=== PATIENT | male | born 1955 | race Caucasian/White ===

== ENCOUNTER 2016-06-16 14:51 | Emergency (ER) | payer MEDICARE ==
[2013-11-06 09:51] VITALS: BMI 18.1
[~2016-06-16 14:51] MED LIST: ACETAMINOPHEN500 M1 PO; ADVAIR HFA 45/212 GM INH; ADVAIR HFA [SP]12 GM INH; BABY ASPIRIN81 MG PO; BAYER CHEWABLE81 MG PO; BENADRYL25 MG PO; COUMADIN5 MG PO; CYCLOBENZAPRINE10 MG PO; DEPAKOTE500 MG PO; DESERYL100 MG PO; DILAUDID 012 MG/30 M IV; DULCOLAX10 MG/SUPP RC; HYDROCODONE-APA1 TAB PO; HYDROCORTISONE30 G8 TP; IMDUR30 MG PO; MIRALAX17 GM PO; NAFCILLIN SO2 G/VIAL IV; NAPROSYN500 MG PO; NARCAN INJ0.4 MG/ML IV; NEURONTIN 300300 MG PO; NEURONTIN600 MG; NICODERM C1 PATCH .3 TD; NORCO 10/325 TA1 TA1 PO; NORCO 5/325 TAB1 TA1 PO; PAXIL30 MG PO; PERSANTINE50 MG PO; PLAVIX75 MG PO; PROAIR HFA8.5 GM INH; PROTONIX40 MG PO; RISPERDAL1 MG PO; SENOKOT-S TABLE1 TAB PO; SODIUM CL 0.91000 ML IV; SYMBICORT 16010.2 GM INH; TUMS500 MG PO; ZANAFLEX4 MG; ZANAFLEX4 MG PO
[2016-06-16 15:22] LABS: EOSINOPHILS 2.2 % (0-7); HEMATOCRIT 46.5 % (42.0-54.0); HEMOGLOBIN 15.8 g/dL (13.5-17.5); LYMPHOCYTES 49.2 % (15-50); MCV 91.2 fL (80.0-100.0); MEAN PLATELET VOLUME 9.3 fL (7.4-10.4); MONOCYTES 6.6 % (2-11); PLATELET COUNT 365 10x3/uL (130-400); RDW 13.7 % (11.5-14.5)
[2016-06-16 15:36] LABS: ALBUMIN 3.4 g/dL (3.4-5.0); ALKALINE PHOSPHATASE 79 U/L (46-116); ALT (SGPT) 72 U/L (10-68); BILIRUBIN - TOTAL 0.15 mg/dL (0.2-1.3); CALC OSMOLALITY 275 mosm/kg (275-300); CALCIUM 8.6 mg/dL (8.5-10.1); CARBON DIOXIDE 24.6 mmol/L (21.0-32.0); CHLORIDE - SERUM 103 mmol/L (98-107); CREATININE - SERUM 0.9 mg/dL (0.6-1.3); GLUCOSE 76 mg/dL (74-106); POTASSIUM - SERUM 3.6 mmol/L (3.5-5.1); PROTEIN - SERUM 7.9 g/dL (6.4-8.2); SODIUM 140 mmol/L (136-145); UREA NITROGEN 7 mg/dL (7-18); eGFR NON AFRICAN AMERICAN > 90 mL/min (90-120)
[2016-06-16 18:21] LABS: APPEARANCE CLEAR (CLEAR); BILIRUBIN NEGATIVE (NEGATIVE); COLOR YELLOW (YELLOW); GLUCOSE NEGATIVE (NEGATIVE); KETONE NEGATIVE (NEGATIVE); LEUKOCYTE ESTERASE NEGATIVE (NEGATIVE); NITRITE NEGATIVE (NEGATIVE); PROTEIN NEGATIVE (NEGATIVE); SPECIFIC GRAVITY 1.005 (1.005-1.020); UDS - AMPHET NEGATIVE QUAL (NEGATIVE); UDS - BARB NEGATIVE QUAL (NEGATIVE); UDS - BENZO POSITIVE QUAL (NEGATIVE); UDS - COCAINE POSITIVE QUAL (NEGATIVE); UDS - METH NEGATIVE QUAL (NEGATIVE); UDS - OPIATE NEGATIVE QUAL (NEGATIVE); UDS - PCP NEGATIVE QUAL (NEGATIVE); UDS - THC POSITIVE QUAL (NEGATIVE); UROBILINOGEN NORMAL (NORMAL)
== END 2016-06-16 19:50 | disposition home or self-care (01) ==
LOC: D.ER 14:51
PROVIDERS: Emergency Medicine
DX: F10.129 Alcohol abuse with intoxication, unspecified (principal); F31.89 Other bipolar disorder; I25.10 Atherosclerotic heart disease of native coronary artery without angina pectoris; E78.5 Hyperlipidemia, unspecified; E83.42 Hypomagnesemia

== ENCOUNTER 2016-09-08 16:39 | Observation (INO) | payer MEDICARE ==
[~2016-09-08] VITALS: Ht 182.9 cm; Wt 59.1 kg
--- NOTE | ~2016-09-08 | HEMODYNAMI ---
PATIENT:SAILAJA ASHBY MEDICAL RECORD: [id number] : 57 LOCATION: D.2218 ADMISSION DATE: 09/08/16 Generatedon:09/11/201610:18 Patient name: SAILAJA ASHBY Patient #: [id number] SSN: D OB: 1955 Date of study: 09/11/2016 Page: Of Hemodynamic Procedure Report Patient Data Patient Demographics Procedure consent was obtained First Name: SAILAJA Gender: Male Last Name: SYMONE : 1955 [facility] Initial: DARYL Age: 60 year(s) Patient #: [id number] Race: Unknown Additional ID: [id number] Contact details Address: [address] [place] [address] State: [place] City: [facility] Zip code: [address] Past Medical History Allergies: No known allergies Admission Admission Data Admission Date: 09/08/2016 Admission Time: 19:47 Room #: D.2218 Height (in.): 72 BSA: 1.78 (m2) Height (cm.): 182.88 BMI: 17.67 (kg/m2) Weight (lbs.): 130.27 Weight (kg.): 59.09 Procedure Procedure Types Cath Procedure Diagnostic Procedure [facility] w/Coronaries Miscellaneous Procedures Moderate Sedation up to 15 minutes Procedure Description Procedure Date Procedure Date: 09/11/2016 Procedure Start Time: 10:01 Procedure End Time: 10:17 Procedure Staff Name Function Luis Cavanaugh MD Performing Physician Riana Marie RT Scrub Kayli Ventura RN Nurse Arpita Sparks RT Monitor Procedure Data Cath Procedure Fluoroscopy Diagnostic fluoroscopy Total fluoroscopy Time: 2.9 time: 2.9 min min Diagnostic fluoroscopy Total fluoroscopy dose: 283 dose: 283 mGy mGy Contrast Material Contrast Material Type Amount (ml) Isovue 300 68 Entry Location Entry Primary Successful Side Size Upsize Upsize Entry Closure [place]ir[place] ccessful Closure Location (Fr) 1 (Fr) 2 (Fr) Remarks Device Remarks Radial Right 6 Fr Mechanical artery Short Compression Estimated blood loss: 10 ml Diagnostic catheters Device Type Used For End Catheter Placement Diagnostic Terumo 5Fr Procedure Melber 110cm catheter Diagnostic Infinity 5Fr AR MOD Catheter Procedure Complications No complications Procedure Medications Medication Administration Route Dosage Oxygen NC 2 l/min Heparin Flush Bag added to field 2 bags (1000units/500ml NS) Lidocaine 2% added to field 20 Radial Cocktail added to field 1 syringe (Verapomil 2mg/Nitro 400mcg/Heparin 1500units) Versed I.V. 1 mg Fentanyl I.V. 50 mcg Versed I.V. 1 mg Fentanyl I.V. 50 mcg Fentanyl I.V. 50 mcg Radial Cocktail I.A. 1 syringe (Verapomil 2mg/Nitro 400mcg/Heparin 1500units) Hemodynamics Rest BSA: 1.78 (m2) O2 Consumption: Estimated: 214.95 (ml/min) O2 Consumption indexed : Estimated:120.76 (ml/min/m) Heart Rate: 78 (bpm) Pressure Samples Time Site Value (mmHg) Purpose Heart Use Rate(bpm) 10:05 LV 113/-19,3 Snapshot 80 Snapshots Pre Cath Intra NCS Post Cath Vital Signs Time Heart Resp SPO2 etCO2 TA5dplc NIBP Rhythm Pain Sedation Rate (ipm) (%) (mmHg) (mmHg) (mmHg) Status Level (bpm) 9:44:53 89 15 97 0 0 141/84(94) NSR 0 (11) 10(A) , No pain 9:49:07 70 16 97 0 0 115/74(95) NSR 0 (11) 10(A) , No pain 9:53:13 74 16 96 0 0 111/70(97) NSR 0 (11) 10(A) , No pain 9:57:19 81 16 96 0 0 101/63(78) NSR 0 (11) 10(A) , No pain 10:01:19 83 16 95 0 0 101/72(85) NSR 0 (11) 9(A) , No pain 10:05:18 84 18 95 0 0 108/71(86) NSR 0 (11) 9(A) , No pain 10:09:24 83 19 96 0 0 98/61(77) NSR 0 (11) 9(A) , No pain 10:13:24 83 18 95 0 0 104/67(85) NSR 0 (11) 9(A) , No pain 10:17:25 79 16 97 0 0 110/68(86) NSR 0 (11) 9(A) , No pain Medications Time Medication Route Dose Verified Delivered Reason Notes Effectiveness by by 9:44:09 Oxygen NC 2 l/min Luis Valderramaecca Per [facility] Gm callaway MD 9:44:18 Heparin Flush added 2 bags Luis Smith used for Bag to Bonanza Bonanza procedure (1000units/500ml field MD VIEIRA NS) 9:44:25 Lidocaine 2% added 20ml Luis Luis used for to vial Afshan Bonanza procedure field MD VIEIRA 9:47:00 Radial Cocktail added 1 Luis Luis used for (Verapomil to syringe Bonanza Bonanza procedure 2mg/Nitro field MD VIEIRA 400mcg/Heparin 1500units) 9:55:40 Versed I.V. 1 mg Luis Kayli for sedation [facility]. Gm Ventura RN, MD 9:55:49 Fentanyl I.V. 50 mcg Luis Kayli for sedation [facility]. Gm Ventura RN, MD 9:58:48 Versed I.V. 1 mg Luis Kayli for sedation [facility]. Gm Ventura RN, MD 9:58:51 Fentanyl I.V. 50 mcg Luis Valderramaecca for sedation [facility]. Gm Ventura RN, MD 10:00:48 Fentanyl I.V. 50 mcg Luis Kayli for sedation St. Gm Ventura RN, MD 10:05:39 Radial Cocktail I.A. 1 Luis Smith for (Verapomil syringe Afshan Afshan vasodilation 2mg/Nitro MD VIEIRA 400mcg/Heparin 1500units) Procedure Log Time Note 9:31:51 Patient Height : 72 cm 9:32:02 Patient Weight : 130.27 kg 9:33:19 Procedure type changed to Cath procedure, Diagnostic procedure, LHC, LHC w/Coronaries, Miscellaneous Procedures, Moderate Sedation up to 15 minutes 9:34:19 Diagnostic Cath status Elective 9:34:22 Kayli Ventura RN sent for patient. Start room use. 9:34:26 Time tracking: Regular hours 9:34:31 Plan of Care:Hemodynamics will remain stable., Cardiac rhythm will remain stable., Comfort level will be maintained., Respiratory function will remain adequate., Patient/ family verbilizes understanding of procedure., Procedure tolerated without complication., Recovers from procedure without complications.. 9:34:41 Patient received from Med II to CCL 1 Alert and oriented. Tansferred to table in Supine position. 9:43:50 Vital chart was started 9:44:09 Oxygen 2 l/min NC was administered by Kayli Ventura RN; Per physician; 9:44:18 Heparin Flush Bag (1000units/500ml NS) 2 bags added to field was administered by Luis Cavanaugh MD; used for procedure; 9:44:25 Lidocaine 2% 20ml vial added to field was administered by Luis Cavanaugh MD; used for procedure; 9:47:00 Radial Cocktail (Verapomil 2mg/Nitro 400mcg/Heparin 1500units) 1 syringe added to field was administered by Luis Cavanaugh MD; used for procedure; 9:51:00 Warm blankets applied, and pierre hugger turned on for patient comfort. 9:51:01 Correct patient and procedure confirmed by team. 9:51:03 Signed procedure consent form obtained from patient. 9:51:05 ECG and BP/O2 sat monitors applied to patient. 9:51:06 Baseline sample Acquired. 9:51:10 Rhythm: sinus rhythm 9:51:12 Full Disclosure recording started 9:51:22 H&P Date Dictated: 09/09/2016 Within 30 days and on chart.. 9:51:25 Pre-procedure instructions explained to patient. 9:51:29 Patient NPO since Midnight. 9:51:39 Patient allergic to No known allergies 9:51:43 Is the patient allergic to Iodine/contrast media? No. 9:51:48 Is patient on blood thinner?Yes 9:51:52 ACC The patient was administered the following blood thiners within the last 24 hours: ACCPlavix 9:51:56 Patient diabetic? No. 9:52:01 Snore? Yes 9:52:03 Sleep apnea? No 9:52:13 Patient pain scale 0/10 ?. 9:52:21 IV patent on arrival in left forearm with 0.9% NaCl at KVO. 9:52:29 Lab results completed and on chart. 9:52:35 Right Radial & Right Groin area was prepped with chlora-prep and draped in sterile fashion 9:52:40 Alarms reviewed by R. N. 9:52:42 Sharps counted by scrub and verified by R.N. 9:54:51 Physician arrived 9:54:52 --------ALL STOP TIME OUT------ 9:54:53 Final Timeout: patient, procedure, and site verified with staff and physician. All members of the team are in agreement. 9:54:56 Right Radial & Right Groin site verified by team. 9:55:01 Sedation plan: IV Moderate Sedation Versed, Fentanyl 9:55:07 Physical assessment completed. ASA score P 2 - A patient with mild systemic disease as per Luis Cavanaugh MD. 9:55:17 Use device set Radial Dx 9:55:18 Acist Syringe opened to sterile field. 9:55:18 Medline Cath Pack opened to sterile field. 9:55:19 Bag Decanter opened to sterile field. 9:55:19 Terumo 6Fr Slender Glidesheath opened to sterile field. 9:55:20 St Shantanu 260cm J .035 wire opened to sterile field. 9:55:20 Acist Hand Control opened to sterile field. 9:55:21 Acist Manifold opened to sterile field. 9:55:40 Versed 1 mg I.V. was administered by Kayli Ventura RN; for sedation; 9:55:49 Fentanyl 50 mcg I.V. was administered by Kayli Ventura RN; for sedation; 9:58:48 Versed 1 mg I.V. was administered by Kayli Ventura RN; for sedation; 9:58:51 Fentanyl 50 mcg I.V. was administered by Kayli Ventura RN; for sedation; 9:59:13 Procedure started. 10:00:48 Fentanyl 50 mcg I.V. was administered by Kayli Ventura RN; for sedation; 10:01:09 Local anesthetic to right radial artery with Lidocaine 2% by Luis Cavanaugh MD.INITIAL ACCESS ONLY 10:03:27 A 6 Fr Short sheath was inserted into the Right Radial artery 10:04:04 A Diagnostic Terumo 5Fr Melber 110cm catheter was advanced over the wire and used for Procedure. 10:04:16 LV angiography performed. 10:04:26 Zero performed for pressure channel P1 10:05:39 Radial Cocktail (Verapomil 2mg/Nitro 400mcg/Heparin 1500units) 1 syringe I.A. was administered by Luis Cavanaugh MD; for vasodilation; 10:06:13 EF : 55 % 10:06:43 LCA angiography performed. 10:09:22 Catheter removed. 10:11:23 A Diagnostic Infinity 5Fr AR MOD Catheter was advanced over the wire and used for . 10:12:30 Terumo TR Band Standard opened to sterile field. 10:12:36 Catheter removed. 10:13:24 Sheath removed intact; hemostasis achieved with Mechanical Compression to the Right Radial artery. 10:13:32 Procedure ended.(Physican Out) 10:15:03 Fluoroscopy dose: 283 mGy 10:15:03 Flurop Dose total: 283 10:15:19 Fluoroscopy time 02.90 minutes. 10:15:33 Contrast amount:Isovue 300 68ml. 10:15:36 Sharps counted by scrub and verified by R.N. 10:15:40 TR band inflated with 10cc of air. 10:15:41 Insertion/operative site no bleeding no hematoma. 10:15:54 Post right radial artery:stable 10:15:56 Post Procedure Pulses reassessed and unchanged 10:16:03 Post-procedure physical assessment completed. ASA score P 2 - A patient with mild systemic disease as per Luis Cavanaugh MD. 10:16:06 Post procedure rhythm: unchanged. 10:16:09 Estimated blood loss: 10 ml 10:16:11 Post procedure instruction explained to patient.Patient verbalizes understanding. 10:16:18 Procedure and supply charges have been captured, reviewed, submitted and are correct. 10:16:47 Procedure Complication : No complications 10:16:50 Vital chart was stopped 10:16:50 See physician's report for complete and final results. 10:16:53 Report given to Med II. 10:16:57 Patient transfered to Med II with Bed. 10:16:59 Procedure ended. 10:16:59 Full Disclosure recording stopped 10:17:02 End room use (Document Last) 10:17:07 ACC-PCI Only Patient was given prescriptions, or instructed by Luis Cavanaugh MD to start/continue the following medications upon discharge: Plavix Device Usage Item Name Manufacture Quantity Catalog Hospital Part Current Minimal Lot# / Number Charge Number Stock Stock Serial# Code Acist Acist 1 82027 713107 112756 545303 20 Syringe Medical Systems Inc Medline Cardinal 1 [id number] 933474 60621 904747 5 Cath Pack Health Bag Microtek 1 2002S 131748 59001 606594 5 Decanter Medical Inc. Terumo 6Fr Terumo 1 [id number] 547006 786553 695510 [address] Shantanu 1 728046 924657 145024 860980 30 260cm J .035 wire Acist Hand Acist 1 44007 252449 981477 567328 5 Control Medical Systems Inc Acist Acist 1 70017 056306 554692 724738 5 Manifold Medical Systems Inc Diagnostic Terumo 1 40-4002 267506 494165 066126 5 Terumo 5Fr Melber 110cm catheter Diagnostic Cardinal 1 [id number] 332806 028244 562436 15 Infinity Health 5Fr AR MOD Catheter Terumo TR Terumo 1 [id number] 843134 398021 152855 40 Band Standard Signature Audit [place] Stage Time Signature Unsigned Intra-Procedure 09/11/2016 Arpita Sparks 10:18:50 AM RT(R) Signatures Monitor : Arpita Sparks Signature : RT Date : Time : [place] [address] [place] [address]
[2016-09-08 17:16] LABS: BASOPHILS 1.2 % (0-2); EOSINOPHILS 1.9 % (0-7); HEMATOCRIT 41.6 % (42.0-54.0); HEMOGLOBIN 14.3 g/dL (13.5-17.5); IMMATURE GRANULOCYTES 0.2 % (0-5); LYMPHOCYTES 49.7 % (15-50); MCH 32.1 pg (26.0-34.0); MCHC 34.4 g/dL (31.0-37.0); MCV 93.3 fL (80.0-100.0); MEAN PLATELET VOLUME 9.3 fL (7.4-10.4); PLATELET COUNT 338 10x3/uL (130-400); RBC 4.46 10x6/uL (4.20-6.10); RDW 14.5 % (11.5-14.5); WBC 5.8 10x3/uL (4.8-10.8)
[2016-09-08 17:36] LABS: ALBUMIN 3.2 g/dL (3.4-5.0); ALKALINE PHOSPHATASE 69 U/L (46-116); ALT (SGPT) 90 U/L (10-68); CALC OSMOLALITY 283 mosm/kg (275-300); CALCIUM 8.5 mg/dL (8.5-10.1); CARBON DIOXIDE 24.4 mmol/L (21.0-32.0); CHLORIDE - SERUM 108 mmol/L (98-107); CREATININE - SERUM 0.6 mg/dL (0.6-1.3); GLUCOSE 102 mg/dL (74-106); POTASSIUM - SERUM 4.2 mmol/L (3.5-5.1); PROTEIN - SERUM 7.5 g/dL (6.4-8.2); SODIUM 143 mmol/L (136-145); UREA NITROGEN 9 mg/dL (7-18); eGFR NON AFRICAN AMERICAN > 90 mL/min (90-120)
[2016-09-08 17:37] LABS: BILIRUBIN - TOTAL 0.09 mg/dL (0.2-1.3)
[2016-09-08 17:47] LABS: CHOL - HDL RATIO 3.9 ratio (2.3-4.9); CHOLESTEROL, TOTAL 182 mg/dL (0-200); CKMB 0.7 U/L (0.0-3.6); CREATINE KINASE 97 UL (21-232); HDL CHOLESTEROL 47 mg/dL (32-96); LDL CHOLESTEROL 100 mg/dL (0-100); LDL-HDL RATIO 2.1 ratio (1.5-3.5); TRIGLYCERIDE 178 mg/dL (30-200); TROPONIN-I < 0.017 ng/mL (0.000-0.060)
[2016-09-08 19:41] LABS: APPEARANCE CLEAR (CLEAR); BILIRUBIN NEGATIVE (NEGATIVE); COLOR YELLOW (YELLOW); GLUCOSE NEGATIVE (NEGATIVE); KETONE NEGATIVE (NEGATIVE); LEUKOCYTE ESTERASE NEGATIVE (NEGATIVE); NITRITE NEGATIVE (NEGATIVE); PROTEIN NEGATIVE (NEGATIVE); UROBILINOGEN NORMAL (NORMAL)
--- NOTE | 2016-09-08 21:00 | NUR ---
RECEIVED TO FLOOR FROM ER, ORIENTED TO ROOM, GIVE CRANBERRY JUICE AND PUDDING, DENIES OTHER NEEDS, BED LOWEST POSITION, CALL LIGHT IN REACH, TELEMETRY ON, WILL CONTINUE TO MONITOR
[2016-09-09] VITALS (7 sets, daily range): BP systolic 97–152; BP diastolic 46–80; Ht 182.9 cm; Wt 59.1 kg
--- NOTE | 2016-09-09 02:21 | NUR ---
WATCHING TV, DENIES NEEDS, WILL CONTINUE TO MONITOR
--- NOTE | 2016-09-09 07:30 | NUR ---
REPORT RECEIVED FROM GOLF COURSE RANGER NURSE. CALL LIGHT IN REACH.
--- NOTE | 2016-09-09 09:26 | NUR ---
AM MEDS ADMINISTERED. CALL LIGHT IN REACH.
--- NOTE | 2016-09-09 09:26 | NUR ---
ASSESSMENT COMPLETED. AM MEDS ADMINISTERED. CALL LIGHT IN REACH. WILL CONTINUE WITH PLAN OF CARE.
--- NOTE | 2016-09-09 10:08 | NUR ---
ASSESSMENT COMPLETED. REFUSES SCD. CALL LIGHT IN REACH. WILL CONTINUE WITH PLAN OF CARE.
--- NOTE | 2016-09-09 10:33 | NUR ---
MORPHINE 4 MG SIVP PER C/O PAIN. SCD TO LLE. PHARMACY OBTAINED AND PLACED IN COMPUTER. CALL LIGHT IN REACH.
--- NOTE | 2016-09-09 12:10 | NUR ---
DR. EID IN ROOM TO SEE PATIENT.
--- NOTE | 2016-09-09 14:40 | NUR ---
NO NEEDS VOICED AT THIS TIME. CALL LIGHT IN REACH.
--- NOTE | 2016-09-09 16:50 | NUR ---
DAUGHTER IN ROOM AT THIS TIME. CALL LIGHT IN REACH.
--- NOTE | 2016-09-09 17:35 | NUR ---
PRAVACHOL AND MORPHINE IVP. CALL LIGHT IN REACH.
--- NOTE | 2016-09-09 18:40 | NUR ---
NO CHANGES IN INITIAL ASSESSMENT. CALL LIGHT IN REACH. WILL CONTINUE WITH PLAN OF CARE.
--- NOTE | 2016-09-09 20:20 | NUR ---
DENIES NEEDS, BED LOWEST POSITION, CALL LIGHT IN REACH, A&O, WILL CONTINUE TO MONITOR
--- NOTE | 2016-09-09 22:09 | NUR ---
PAIN MEDS GIVEN FOR PAIN 9, DENIES OTHER NEEDS, WILL CONTINUE TO MONITOR
[2016-09-10] VITALS: BP 112/65
--- NOTE | 2016-09-10 02:13 | NUR ---
ALERT/AWAKE. NURSE PRESENT IN ROOM ADMINISTERING PAIN MEDICATION. HAS 02 AT 2L/NC. RR EVEN U/L. BED IS LOW WITH SR UP X2. HAS CL IN REACH.
[2016-09-10 04:00] VITALS: BP 114/66
--- NOTE | 2016-09-10 07:15 | NUR ---
REPORT RECEIVED FROM JOB CAPTAIN NURSE. CALL LIGHT IN REACH.
[2016-09-10 07:53] VITALS: BP 112/68
--- NOTE | 2016-09-10 08:30 | NUR ---
ASSESSMENT COMPLETED. SCD TO RLE. CALL LIGHT IN REACH. WILL CONTINUE WITH PLAN OF CARE.
--- NOTE | 2016-09-10 10:18 | NUR ---
MORPHINE SIVP WITH AM MEDS ADMINISTERED. CALL LIGHT IN REACH.
--- NOTE | 2016-09-10 10:26 | CN ---
PATIENT NAME:SAILAJA ASHBY MEDICAL RECORD: [id number] : 57 LOCATION:D.MS [place]8 ADMIT DATE: 09/08/16 ACCOUNT: [id number] CONSULTING PHYSICIAN: AB ZELAYA MD REFERRING PHYSICIAN: DENI PETERSEN MD DATE OF CONSULTATION: 09/09/2016 CARDIOLOGY CONSULTATION HISTORY OF PRESENT ILLNESS: A 60-year-old gentleman with systemic vasculopathy, status post left AKA, has a history of noncompliance in the past, has been out of medications for approximately 2 months by his report. Been having intermittent chest pain, generalized weakness, headache, and marked constitutional symptoms. Good historian ____ recently. We were asked to see him concerning his cardiovascular status. PAST MEDICAL HISTORY: Include: 1. History of peripheral vascular disease. 2. History of methamphetamine use. 3. History of obstructive pulmonary disease. 4. Peripheral vascular disease. 5. Hypertension. 6. Hyperlipidemia. ALLERGIES: No known drug allergies. MEDICATIONS: By report, although he has not been taking in the last 2 months include Imdur 30 mg p.o. q. day, aspirin 81 q. day, Plavix 75 q. day, Protonix 40 q. day. SOCIAL HISTORY: , lives here in [place]. He smokes, use illicit drugs described above. REVIEW OF SYSTEMS: The patient reports easy bruising but reports no swollen glands. The patient reports no fever, no night sweats, no significant weight gain, no significant weight loss. No significant exercise tolerance. The patient reports no dry eyes, no irritation, no vision change. Patient reports no difficulty hearing and no ear pain. Patient reports no frequent nose bleeds or nose and sinus problems. Patient reports on arm pain on exertion. No shortness of breath while lying down. No history of heart murmur. Patient reports no cough, no wheezing or coughing up blood. Patient reports no abdominal pain, no vomiting. Normal appetite. No diarrhea and not vomiting blood. No nausea and no constipation. Patient reports no incontinence. No difficulty urinating. No hematuria. No increased frequency. Patient reports no muscle aches. No weakness, no arthralgias, no back pain. No swelling of the extremities. Patient reports no abnormal mole, no jaundice, no rashes. Reports no loss of consciousness. No weakness and no numbness. No seizures, dizziness, or headaches. The patient reports no depression, no sleep disturbance, feeling safe in a relationship and no alcohol abuse. Patient reports on fatigue. Reports no runny nose or sinus pressure. No itching, no hives, and no frequent sneezing. PHYSICAL EXAMINATION: GENERAL: An unkempt gentleman in no acute distress. VITAL SIGNS: Blood pressure 97/46, pulse 63 and regular. CONSULT REPORT [id number] SYMONESAILAJA BRITO HEENT: Normocephalic and atraumatic. NECK: No JVD or bruit. HEART: Regular, II/ systolic ejection murmur. LUNGS: Prolonged expiratory phase. ABDOMEN: Soft, nontender. EXTREMITIES: Pulses are decreased on the right. AKA on the left. IMPRESSION: Chest pain, negative cardiac enzymes. PLAN: At this point in time, would simply restart his usual medications. No evidence of acute coronary syndrome via enzymes or ECG. Thank you for the consultation. TRANSINT:[id number] Voice Confirmation ID: [id number] DOCUMENT ID: [id number] AB ZELAYA MD at 1026 CC: [id number] DICTATION DATE: 09/09/16 1253 PATIENT CARRIER: 09/09/162030 ADM IN [facility] [address] [place] [address]
--- NOTE | 2016-09-10 12:20 | NUR ---
NO NEEDS VOICED.
[2016-09-10 14:08] VITALS: BP 131/59
--- NOTE | 2016-09-10 14:20 | NUR ---
DENIES NEEDS AT THIS TIME. CALL LIGHT IN REACH.
--- NOTE | 2016-09-10 15:37 | NUR ---
BENADRYL PO PER C/O RASH AND ITCHING. CALL LIGHT IN REACH.
[2016-09-10 15:55] VITALS: BP 110/63
[2016-09-10 16:05] LABS: CKMB 0.9 U/L (0.0-3.6); CREATINE KINASE 152 UL (21-232)
[2016-09-10 16:12] LABS: TROPONIN-I < 0.017 ng/mL (0.000-0.060)
--- NOTE | 2016-09-10 17:35 | NUR ---
REQUESTING PAIN MEDS. TOO SOON FOR ADMINISTRATION. CALL LIGHT IN REACH.
--- NOTE | 2016-09-10 18:33 | NUR ---
NO CHANGES IN INITIAL ASSESSMENT. CALL LIGHT IN REACH. SCD ON. WILL CONTINUE WITH PLAN OF CARE.
--- NOTE | 2016-09-10 18:50 | NUR ---
PT AOX4 RESP EVEN AND NONLABORED PT DENIES NEEDS AT THIS TIME PT HERE FOR GENERALIZED WEAKNESS FOR THIS VISIT. IV TO LEFT AC PATENT AND INTACT AT THIS TIME SRX2 BED IN LOWEST SETTING WILL CONTINUE TO MONITOR
--- NOTE | 2016-09-10 19:45 | NUR ---
PT UP IN W/C RETURNING TO ROOM. ASSESSMENT PER FLOWSHEET. IV PATENT LEFT AC SALINE LOCK SITE CLEAR. PT GOT BACK INTO HIS BED. VOIDS IN URINAL.
[2016-09-10 20:00] VITALS: BP 114/61
--- NOTE | 2016-09-10 20:30 | NUR ---
MEDS GIVEN PER MAR. REQUESTING MED FOR ITCHING. BENADRYL 25MG PO GIVEN FOR ITCHING.
[2016-09-11] VITALS: BP 110/60
--- NOTE | 2016-09-11 | NUR ---
EYES CLOSED RESPIRATIONS WITH EASE AND UNLABORED.
[2016-09-11 04:00] VITALS: BP 108/66
--- NOTE | 2016-09-11 07:45 | NUR ---
SCHEDULED MEDICATIONS ADMINISTERED AT THIS TIME. PRN BENADRYL AND MORPHINE ADMINISTERED AT THIS TIME. ALERT AND ORIENTED WITH RESPIRATIONS EVEN AND NON LABORED. ASSESSMENT PERFORMED PER FLOWSHEET. CALL LIGHT IN REACH, WILL CONTINUE WITH PLAN OF CARE.
[2016-09-11 08:12] VITALS: BP 114/68
[2016-09-11 08:13] LABS: CALC OSMOLALITY 275 mosm/kg (275-300); CALCIUM 9.2 mg/dL (8.5-10.1); CARBON DIOXIDE 34.2 mmol/L (21.0-32.0); CHLORIDE - SERUM 99 mmol/L (98-107); CREATININE - SERUM 0.8 mg/dL (0.6-1.3); POTASSIUM - SERUM 4.1 mmol/L (3.5-5.1); SODIUM 140 mmol/L (136-145); UREA NITROGEN 11 mg/dL (7-18); eGFR NON AFRICAN AMERICAN > 90 mL/min (90-120)
[2016-09-11 08:15] LABS: GLUCOSE 59 mg/dL (74-106)
[2016-09-11 08:17] LABS: BASOPHILS 0.8 % (0-2); HEMATOCRIT 45.1 % (42.0-54.0); HEMOGLOBIN 15.4 g/dL (13.5-17.5); IMMATURE GRANULOCYTES 0.3 % (0-5); LYMPHOCYTES 31.5 % (15-50); MCH 32.3 pg (26.0-34.0); MCHC 34.1 g/dL (31.0-37.0); MCV 94.5 fL (80.0-100.0); MEAN PLATELET VOLUME 9.6 fL (7.4-10.4); MONOCYTES 11.5 % (2-11); NEUTROPHILS 53.9 % (40-80); PLATELET COUNT 325 10x3/uL (130-400); RBC 4.77 10x6/uL (4.20-6.10); RDW 14.4 % (11.5-14.5); WBC 7.2 10x3/uL (4.8-10.8)
--- NOTE | 2016-09-11 08:28 | NUR ---
PRE PROCEDURE MEDICATIONS ADMINISTERED AT THIS TIME. BENADRYL HELD PT HAS ALREADY HAD A PRN PO DOSE. WILL TRANSFER TO 2114 POST CATH. NOTIFIED PT'S DAUGHTER.
--- NOTE | 2016-09-11 10:04 | NUR ---
REPORT CALLED TO LINDA STRICKLAND ON MED II AT THIS TIME.
--- NOTE | 2016-09-11 10:37 | NUR ---
BACK FROM JOY OPERATOR HELPER. BS WNL. RIGHT WRIST STABLE WITH TR BAND INTACT. WILL MONITOR.
--- NOTE | 2016-09-11 12:32 | NUR ---
TR BAND DCD WITHOUT BLEEDING OR HEMATOMA NOTED. WILL MONITOR.
[2016-09-11 12:46] VITALS: BP 104/59; BP 111/66
[2016-09-11] MEDS ORDERED: PRAVASTATIN SOD10 MG PO (14:07)
[2016-09-11] MEDS ORDERED: NEURONTIN 300300 MG PO (14:07)
[2016-09-11] MEDS ORDERED: PROTONIX40 MG PO (15:13)
[2016-09-11] MEDS ORDERED: BAYER CHEWABLE81 MG PO (15:13)
[2016-09-11] MEDS ORDERED: ADVAIR HFA [SP]12 GM INH (15:13)
[2016-09-11] MEDS ORDERED: PLAVIX75 MG PO (15:13)
[2016-09-11] MEDS ORDERED: ISOSORBIDE MONO30 M1 PO (15:13)
[2016-09-11] MEDS ORDERED: PROAIR HFA8.5 GM INH (15:13)
--- NOTE | 2016-09-11 16:15 | NUR ---
IV AND TELEMETRY DCD. DC PLANS GIVEN. UNDERSTANDING VOICED. ESCORTED TO CAR BY W/C.
--- NOTE | 2016-09-12 16:11 | OP ---
PATIENT NAME: SAILAJA ASHBY MEDICAL RECORD: [id number] :57 LOCATION:D.M2 D.2115 ADMISSION DATE:09/08/16 SURGEON: AB ZELAYA MD DATE OF OPERATION: 09/11/2016 PROCEDURES: Left heart catheterization, selective coronary angiography, right radial approach. CATHETERS: Radial sheath, [place] catheter. The procedure was well tolerated and the patient returned to dennis. Sheath removed. TR band was placed. FINDINGS: Left ventriculography in 30-degree ROSARIO view: Normal wall motion, normal systolic function. CORONARY ANATOMY: LEFT MAIN: Left main is free of disease. LAD: LAD in the area of previous stenting shows no restenosis. No progression of yurok disease. CIRCUMFLEX: Free of disease. RIGHT CORONARY ARTERY: In the area of previous stenting shows no restenosis. No progression of yurok disease. IMPRESSION: Widely patent stents. No progression of yurok disease. Normal left ventricular function, noncardiac etiology of chest pain. TRANSINT:[id number] Voice Confirmation ID: [id number] DOCUMENT ID: [id number] AB ZELAYA MD at 1611 CC: [id number] DICTATION DATE: 09/11/16 1017 AUDIO OPERATOR: 09/11/16 1731 DIS IN 09/11/[address] [facility] [address] [place] [address]
== END 2016-09-11 16:16 | disposition home or self-care (01) ==
LOC: D.ER 16:39 → D.MS 19:47 → OBSVTIME 19:47 → D.M2 19:47 → D.MS 19:47 → D.M2 09-11 10:34
PROVIDERS: Emergency Medicine; Family Medicine; Internal Medicine Interventional Cardiology; Nurse Practitioner Family; ADMIT Family Medicine
DX: R07.89 Other chest pain (principal); I25.10 Atherosclerotic heart disease of native coronary artery without angina pectoris; Z95.5 Presence of coronary angioplasty implant and graft; I10 Essential (primary) hypertension; E78.5 Hyperlipidemia, unspecified; I73.9 Peripheral vascular disease, unspecified; Z89.612 Acquired absence of left leg above knee; Z91.14 Patient's other noncompliance with medication regimen; J44.9 Chronic obstructive pulmonary disease, unspecified; F15.10 Other stimulant abuse, uncomplicated; F12.90 Cannabis use, unspecified, uncomplicated

== ENCOUNTER 2016-12-17 18:07 | Emergency (ER) | payer MEDICARE ==
[2016-09-09 00:34] VITALS: BMI 17.6
[~2016-12-17 18:07] MED LIST changes: +ISOSORBIDE MONO30 M1 PO; +PRAVASTATIN SOD10 MG PO
[2016-12-17 19:51] LABS: BASOPHILS 0.6 % (0-2); HEMATOCRIT 43.9 % (42.0-54.0); HEMOGLOBIN 15.2 g/dL (13.5-17.5); IMMATURE GRANULOCYTES 0.2 % (0-5); LYMPHOCYTES 33.6 % (15-50); MCH 32.1 pg (26.0-34.0); MCHC 34.6 g/dL (31.0-37.0); MCV 92.6 fL (80.0-100.0); MEAN PLATELET VOLUME 9.6 fL (7.4-10.4); MONOCYTES 6.5 % (2-11); NEUTROPHILS 57.1 % (40-80); PLATELET COUNT 323 10x3/uL (130-400); RBC 4.74 10x6/uL (4.20-6.10); RDW 13.1 % (11.5-14.5); WBC 6.5 10x3/uL (4.8-10.8)
[2016-12-17 20:03] LABS: INR 0.89 (0.85-1.17); PROTIME 11.9 SECONDS (11.6-15.0)
[2016-12-17 20:10] LABS: ALBUMIN 3.4 g/dL (3.4-5.0); ALKALINE PHOSPHATASE 66 U/L (46-116); ALT (SGPT) 101 U/L (10-68); BILIRUBIN - TOTAL 0.12 mg/dL (0.2-1.3); CALC OSMOLALITY 278 mosm/kg (275-300); CALCIUM 9.3 mg/dL (8.5-10.1); CHLORIDE - SERUM 104 mmol/L (98-107); CREATININE - SERUM 0.9 mg/dL (0.6-1.3); GLUCOSE 84 mg/dL (74-106); POTASSIUM - SERUM 4.2 mmol/L (3.5-5.1); PROTEIN - SERUM 7.6 g/dL (6.4-8.2); SODIUM 141 mmol/L (136-145); UREA NITROGEN 11 mg/dL (7-18); eGFR NON AFRICAN AMERICAN > 90 mL/min (90-120)
[2016-12-17 20:18] LABS: CREATINE KINASE 98 UL (21-232); MAGNESIUM - SERUM 1.8 mg/dL (1.8-2.4); PRO BNP 14 pg/mL (0-125); URIC ACID 6.4 mg/dL (2.6-7.2)
[2016-12-17 20:20] LABS: TROPONIN-I < 0.017 ng/mL (0.000-0.060)
[2016-12-17 21:19] LABS: APPEARANCE CLEAR (CLEAR); BILIRUBIN NEGATIVE (NEGATIVE); COLOR YELLOW (YELLOW); GLUCOSE NEGATIVE (NEGATIVE); KETONE NEGATIVE (NEGATIVE); NITRITE NEGATIVE (NEGATIVE); PROTEIN NEGATIVE (NEGATIVE); SPECIFIC GRAVITY 1.015 (1.005-1.020); UROBILINOGEN NORMAL (NORMAL)
[2016-12-17 21:25] LABS: UDS - AMPHET NEGATIVE QUAL (NEGATIVE); UDS - BARB NEGATIVE QUAL (NEGATIVE); UDS - BENZO NEGATIVE QUAL (NEGATIVE); UDS - COCAINE POSITIVE QUAL (NEGATIVE); UDS - OPIATE NEGATIVE QUAL (NEGATIVE); UDS - PCP NEGATIVE QUAL (NEGATIVE); UDS - THC NEGATIVE QUAL (NEGATIVE)
== END 2016-12-17 22:45 | disposition home or self-care (01) ==
LOC: D.ER 18:07
PROVIDERS: Nurse Practitioner Family
DX: M79.641 Pain in right hand (principal); R53.1 Weakness; J44.9 Chronic obstructive pulmonary disease, unspecified; I45.10 Unspecified right bundle-branch block

== ENCOUNTER 2017-01-29 22:51 | Emergency (ER) | payer MEDICARE ==
[2016-09-09 00:34] VITALS: BMI 17.6
[2017-01-29 23:35] LABS: UDS - AMPHET NEGATIVE QUAL (NEGATIVE); UDS - BARB NEGATIVE QUAL (NEGATIVE); UDS - BENZO NEGATIVE QUAL (NEGATIVE); UDS - COCAINE POSITIVE QUAL (NEGATIVE); UDS - OPIATE NEGATIVE QUAL (NEGATIVE); UDS - PCP NEGATIVE QUAL (NEGATIVE); UDS - THC POSITIVE QUAL (NEGATIVE)
[2017-01-29 23:44] LABS: APPEARANCE CLEAR (CLEAR); BILIRUBIN NEGATIVE (NEGATIVE); COLOR YELLOW (YELLOW); GLUCOSE NEGATIVE (NEGATIVE); KETONE NEGATIVE (NEGATIVE); NITRITE NEGATIVE (NEGATIVE); PROTEIN NEGATIVE (NEGATIVE); UROBILINOGEN NORMAL (NORMAL)
[2017-01-29 23:45] LABS: BACTERIA NONE SEEN /hpf (NONE SEEN); EPITHELIAL CELLS NSEEN /hpf (0-5); RED CELLS - URINE NONE SEEN /hpf (0-5); WHITE CELLS - URINE 0-5 /hpf (0-5)
[2017-01-29 23:46] LABS: HEMATOCRIT 41.9 % (42.0-54.0); HEMOGLOBIN 14.6 g/dL (13.5-17.5); LYMPHOCYTES 47.3 % (15-50); MCH 31.7 pg (26.0-34.0); MCHC 34.8 g/dL (31.0-37.0); MCV 91.1 fL (80.0-100.0); MEAN PLATELET VOLUME 8.9 fL (7.4-10.4); NEUTROPHILS 42.8 % (40-80); RDW 13.9 % (11.5-14.5); WBC 6.5 10x3/uL (4.8-10.8)
[2017-01-29 23:49] LABS: PLATELET COUNT 486 10x3/uL (130-400)
[2017-01-29 23:50] LABS: SALICYLATES 2.8 mg/dL (2.8-20.0)
[2017-01-29 23:52] LABS: ALBUMIN 3.5 g/dL (3.4-5.0); ALKALINE PHOSPHATASE 75 U/L (46-116); ALT (SGPT) 151 U/L (10-68); CALC OSMOLALITY 275 mosm/kg (275-300); CALCIUM 9.2 mg/dL (8.5-10.1); CARBON DIOXIDE 26.3 mmol/L (21.0-32.0); CHLORIDE - SERUM 101 mmol/L (98-107); CREATININE - SERUM 0.8 mg/dL (0.6-1.3); GLUCOSE 86 mg/dL (74-106); POTASSIUM - SERUM 4.2 mmol/L (3.5-5.1); PROTEIN - SERUM 8.2 g/dL (6.4-8.2); SODIUM 139 mmol/L (136-145); UREA NITROGEN 9 mg/dL (7-18); eGFR NON AFRICAN AMERICAN > 90 mL/min (90-120)
[2017-01-29 23:54] LABS: LITHIUM 0.02 mmol/L (0.60-1.20)
== END 2017-01-30 17:56 | disposition home or self-care (01) ==
LOC: D.ER 22:51
PROVIDERS: Family Medicine
DX: F10.10 Alcohol abuse, uncomplicated (principal); R45.851 Suicidal ideations; Y92.019 Unspecified place in single-family (private) house as the place of occurrence of the external cause; T65.92XA Toxic effect of unspecified substance, intentional self-harm, initial encounter; F17.200 Nicotine dependence, unspecified, uncomplicated

== ENCOUNTER 2017-02-04 23:21 | Emergency (ER) | payer MEDICARE ==
[2016-09-09 00:34] VITALS: BMI 17.6
[2017-02-04 23:59] LABS: BASOPHILS 0.7 % (0-2); EOSINOPHILS 3.1 % (0-7); HEMATOCRIT 45.3 % (42.0-54.0); HEMOGLOBIN 15.6 g/dL (13.5-17.5); IMMATURE GRANULOCYTES 0.2 % (0-5); LYMPHOCYTES 29.5 % (15-50); MCH 32.2 pg (26.0-34.0); MCHC 34.4 g/dL (31.0-37.0); MCV 93.4 fL (80.0-100.0); MEAN PLATELET VOLUME 9.7 fL (7.4-10.4); MONOCYTES 5.3 % (2-11); NEUTROPHILS 61.2 % (40-80); PLATELET COUNT 387 10x3/uL (130-400); RBC 4.85 10x6/uL (4.20-6.10); RDW 13.6 % (11.5-14.5); WBC 8.3 10x3/uL (4.8-10.8)
[2017-02-05 00:19] LABS: ALBUMIN 3.6 g/dL (3.4-5.0); ALKALINE PHOSPHATASE 74 U/L (46-116); ALT (SGPT) 118 U/L (10-68); CALC OSMOLALITY 272 mosm/kg (275-300); CALCIUM 9.5 mg/dL (8.5-10.1); CARBON DIOXIDE 28.8 mmol/L (21.0-32.0); CHLORIDE - SERUM 99 mmol/L (98-107); CREATININE - SERUM 0.7 mg/dL (0.6-1.3); POTASSIUM - SERUM 3.7 mmol/L (3.5-5.1); PROTEIN - SERUM 8.5 g/dL (6.4-8.2); SODIUM 136 mmol/L (136-145); UREA NITROGEN 9 mg/dL (7-18); eGFR NON AFRICAN AMERICAN > 90 mL/min (90-120)
[2017-02-05 00:22] LABS: GLUCOSE 134 mg/dL (74-106)
[2017-02-05 00:28] LABS: CKMB 0.9 U/L (0.0-3.6); CREATINE KINASE 69 UL (21-232); PRO BNP 7 pg/mL (0-125); TROPONIN-I < 0.017 ng/mL (0.000-0.060)
== END 2017-02-05 02:00 | disposition home or self-care (01) ==
LOC: D.ER 23:21
PROVIDERS: Family Medicine
DX: R07.89 Other chest pain (principal); J44.9 Chronic obstructive pulmonary disease, unspecified; B19.20 Unspecified viral hepatitis C without hepatic coma; I45.10 Unspecified right bundle-branch block

== ENCOUNTER 2017-04-14 14:06 | Emergency (ER) | payer MEDICARE ==
[2016-09-09 00:34] VITALS: BMI 17.6
[2017-04-14 15:05] LABS: APPEARANCE CLEAR (CLEAR); BILIRUBIN NEGATIVE (NEGATIVE); COLOR YELLOW (YELLOW); GLUCOSE NEGATIVE (NEGATIVE); KETONE NEGATIVE (NEGATIVE); NITRITE NEGATIVE (NEGATIVE); PH 5.5 (5.0-6.0); PROTEIN NEGATIVE (NEGATIVE); SPECIFIC GRAVITY 1.015 (1.005-1.020); UROBILINOGEN NORMAL (NORMAL)
== END 2017-04-14 20:02 | disposition home or self-care (01) ==
LOC: D.ER 14:06
PROVIDERS: Family Medicine
DX: K59.00 Constipation, unspecified (principal); J44.9 Chronic obstructive pulmonary disease, unspecified; I25.10 Atherosclerotic heart disease of native coronary artery without angina pectoris; F17.200 Nicotine dependence, unspecified, uncomplicated

== ENCOUNTER → 2018-02-22 08:46 | Outpatient (CLI) | payer MEDICARE ==
[2016-09-09 00:34] VITALS: BMI 17.6
== END | disposition home or self-care (01) ==
LOC: D.CT 02-07 10:30
DX: R93.89 Abnormal findings on diagnostic imaging of other specified body structures (principal)

== ENCOUNTER → 2018-04-09 09:16 | Outpatient (CLI) | payer MEDICARE ==
[2016-09-09 00:34] VITALS: BMI 17.6
== END | disposition home or self-care (01) ==
LOC: D.RT 09:16
PROVIDERS: ATTEND Internal Medicine Pulmonary Disease
DX: J44.9 Chronic obstructive pulmonary disease, unspecified (principal)

== ENCOUNTER 2018-08-19 23:55 | Observation (INO) | payer MEDICARE ==
[~2018-08-19] VITALS: Ht 182.9 cm; Wt 61.8 kg
--- NOTE | 2018-08-20 00:02 | NUR ---
HOUSE SUPER VISOR NOTIFIED OF NEED FOR PSYCH EVALUATION.
[2018-08-20 00:23] LABS: BASOPHILS 0.3 % (0-2); EOSINOPHILS 1.1 % (0-7); HEMATOCRIT 40.1 % (42.0-54.0); IMMATURE GRANULOCYTES 0.3 % (0-5); MCHC 34.9 g/dL (31.0-37.0); MCV 88.9 fL (80.0-100.0); MEAN PLATELET VOLUME 9.6 fL (7.4-10.4); MONOCYTES 7.5 % (2-11); NEUTROPHILS 53.8 % (40-80); PLATELET COUNT 323 10x3/uL (130-400); RBC 4.51 10x6/uL (4.20-6.10); RDW 14.1 % (11.5-14.5); WBC 6.5 10x3/uL (4.8-10.8)
[2018-08-20 00:34] LABS: INR 0.95 (0.85-1.17); PROTIME 12.2 SECONDS (11.6-15.0)
[2018-08-20 00:37] LABS: ALBUMIN 3.5 g/dL (3.4-5.0); ALKALINE PHOSPHATASE 63 U/L (46-116); ALT (SGPT) 99 U/L (10-68); BILIRUBIN - TOTAL 0.18 mg/dL (0.2-1.3); CALC OSMOLALITY 274 mosm/kg (275-300); CALCIUM 8.7 mg/dL (8.5-10.1); CARBON DIOXIDE 22.9 mmol/L (21.0-32.0); CHLORIDE - SERUM 103 mmol/L (98-107); CREATININE - SERUM 0.8 mg/dL (0.6-1.3); GLUCOSE 106 mg/dL (74-106); POTASSIUM - SERUM 3.7 mmol/L (3.5-5.1); PROTEIN - SERUM 7.7 g/dL (6.4-8.2); SODIUM 138 mmol/L (136-145); UREA NITROGEN 9 mg/dL (7-18); eGFR NON AFRICAN AMERICAN > 90 mL/min (90-120)
[2018-08-20 00:48] LABS: D-DIMER-QUANTITATIVE 1.42 ug/mLFEU (0.20-0.54)
[2018-08-20 00:57] LABS: CKMB 0.5 U/L (0.0-3.6); CREATINE KINASE 61 UL (21-232); MAGNESIUM - SERUM 1.8 mg/dL (1.8-2.4); TROPONIN-I < 0.017 ng/mL (0.000-0.060)
--- NOTE | 2018-08-20 01:07 | NUR ---
DR GARCIA NOTIFIED AND SITTER ORDERED. SITTER AT BEDSIDE. NOTIFIED CHARGE NURSE AND ATTENDING IN REGARDS TO ASSESSMENT FINDINGS. RESOURCES GIVEN TO PATIENT AND SAFETY PLAN INITIATED.
--- NOTE | 2018-08-20 01:31 | NUR ---
BOX LUNCH PROVIDED.
[2018-08-20 01:50] VITALS: BP 122/68
--- NOTE | 2018-08-20 01:50 | NUR ---
PT PLACED IN SAFE ROOM BELONGINGS REMOVED AND PLACED IN PAPER SCRUBS PT 1:1 TILL SITTER CAN ARRIVE.
--- NOTE | 2018-08-20 02:00 | NUR ---
SITTER AT BEDSIDE. PT CALM AND COOPERATIVE AT THIS TIME.
--- NOTE | 2018-08-20 02:07 | NUR ---
LOGAN RODRIGUES APN AT BEDSIDE.
[2018-08-20 02:40] VITALS: BP 120/65
[2018-08-20 03:22] VITALS: BP 111/61; Ht 182.9 cm; Wt 61.8 kg
--- NOTE | 2018-08-20 03:45 | NUR ---
PATIENT ARRIVED TO FLOOR. MHT REMOVED EQUIPMENT THAT NEEDED TO BE REMOVED PER POLICY. PATIENT PLACED ON TELEMETRY. IV IN L AC IS SL. PATIENT ALERT AND ORIENTED, RESTING COMFORTABLY IN BED. RESPIRATIONS ARE EVEN AND UNLABORED. NO S/S OF DISTRESS. NO C/O PAIN. CALL LIGHT WITHIN REACH. WILL CPOC.
[2018-08-20 04:00] VITALS: BP 102/54
[2018-08-20 06:11] LABS: BASOPHILS 0.7 % (0-2); EOSINOPHILS 2.2 % (0-7); HEMATOCRIT 38.4 % (42.0-54.0); HEMOGLOBIN 13.1 g/dL (13.5-17.5); IMMATURE GRANULOCYTES 0.3 % (0-5); LYMPHOCYTES 49.4 % (15-50); MCH 30.6 pg (26.0-34.0); MCHC 34.1 g/dL (31.0-37.0); MCV 89.7 fL (80.0-100.0); MEAN PLATELET VOLUME 9.9 fL (7.4-10.4); MONOCYTES 7.4 % (2-11); PLATELET COUNT 309 10x3/uL (130-400); RBC 4.28 10x6/uL (4.20-6.10); RDW 14.4 % (11.5-14.5); WBC 5.9 10x3/uL (4.8-10.8)
[2018-08-20 06:39] LABS: ALBUMIN 3.1 g/dL (3.4-5.0); ALKALINE PHOSPHATASE 62 U/L (46-116); ALT (SGPT) 99 U/L (10-68); BILIRUBIN - TOTAL 0.16 mg/dL (0.2-1.3); CALC OSMOLALITY 278 mosm/kg (275-300); CALCIUM 8.5 mg/dL (8.5-10.1); CARBON DIOXIDE 23.9 mmol/L (21.0-32.0); CHLORIDE - SERUM 106 mmol/L (98-107); CKMB 0.4 U/L (0.0-3.6); CREATINE KINASE 58 UL (21-232); CREATININE - SERUM 0.7 mg/dL (0.6-1.3); GLUCOSE 102 mg/dL (74-106); MAGNESIUM - SERUM 1.7 mg/dL (1.8-2.4); PHOSPHOROUS 3.7 mg/dL (2.5-4.9); POTASSIUM - SERUM 3.5 mmol/L (3.5-5.1); PROTEIN - SERUM 6.9 g/dL (6.4-8.2); SODIUM 141 mmol/L (136-145); UREA NITROGEN 7 mg/dL (7-18); eGFR NON AFRICAN AMERICAN > 90 mL/min (90-120)
[2018-08-20 06:50] LABS: TROPONIN-I < 0.017 ng/mL (0.000-0.060)
--- NOTE | 2018-08-20 07:30 | NUR ---
RECEIVED PT IN BED ALERT AND ORIENTED RESP UNLABORED
--- NOTE | 2018-08-20 07:30 | NUR ---
PT NPO FOR TESTS SATES HE THINKS HE WILL STARVE TO EXPLAINED SOON TESTS WERE COMPLETE WE WOULD GET HIM SOMETHING TO EAT
--- NOTE | 2018-08-20 07:59 | NUR ---
C-SSRS COMPLETED. PATIENT DENIES ANY THOUGHTS OF SI AT THIS TIME. CONTINUE SITTER AT BEDSIDE.
[2018-08-20 09:18] VITALS: BP 123/63
[2018-08-20 12:40] LABS: CKMB 0.6 U/L (0.0-3.6); CREATINE KINASE 56 UL (21-232)
[2018-08-20 12:41] LABS: TROPONIN-I < 0.017 ng/mL (0.000-0.060)
[2018-08-20] MEDS ORDERED: NEURONTIN800 MG PO (12:54)
[2018-08-20] MEDS ORDERED: LIPITOR40 MG PO (12:55)
[2018-08-20 17:39] LABS: CKMB 0.6 U/L (0.0-3.6); CREATINE KINASE 73 UL (21-232); TROPONIN-I < 0.017 ng/mL (0.000-0.060)
[2018-08-20 18:49] VITALS: BP 134/65
--- NOTE | 2018-08-20 19:25 | NUR ---
RECEIVED PATIENT. RR EVEN AND UNLABORED. NO S/S OF DISTRESS NOTED. SUICIDE PRECAUTIONS IN PLACE. 1:1 SITTER PRESENT. DENIES NEEDS AT THIS TIME. WILL CPOC.
[2018-08-21] VITALS: BP 151/89
[2018-08-21 00:40] LABS: CKMB 0.5 U/L (0.0-3.6); CREATINE KINASE 60 UL (21-232)
[2018-08-21 00:46] LABS: TROPONIN-I < 0.017 ng/mL (0.000-0.060)
--- NOTE | 2018-08-21 01:45 | NUR ---
RESIDENT HAS BEEN RESTING QUIETLY. RR EVEN AN UNLABORED. ALERT AND ORIENTED. DENIES PAIN AT THIS TIME. NO NEEDS EXPRESSED. REMAINS ON 1:1 SUICIDE PRECAUTIONS. NO S/S OF DISTRESS NOTED. WILL CPOC.
--- NOTE | 2018-08-21 01:51 | NUR ---
PT RESTING QUIETLY. RR EVEN AND UNLABORED. NO S/S OF DISTRESS NOTED. REMAINS ON 1:1 SUICIDE PRECAUTIONS. NO NEEDS EXPRESSED. WILL CPOC.
[2018-08-21 02:23] LABS: APPEARANCE CLEAR (CLEAR); BILIRUBIN NEGATIVE (NEGATIVE); COLOR YELLOW (YELLOW); GLUCOSE NEGATIVE (NEGATIVE); KETONE NEGATIVE (NEGATIVE); NITRITE NEGATIVE (NEGATIVE); PROTEIN NEGATIVE (NEGATIVE); UROBILINOGEN NORMAL (NORMAL)
[2018-08-21 02:26] LABS: UDS - AMPHET NEGATIVE QUAL (NEGATIVE); UDS - BARB NEGATIVE QUAL (NEGATIVE); UDS - BENZO NEGATIVE QUAL (NEGATIVE); UDS - COCAINE POSITIVE QUAL (NEGATIVE); UDS - OPIATE NEGATIVE QUAL (NEGATIVE); UDS - PCP NEGATIVE QUAL (NEGATIVE); UDS - THC POSITIVE QUAL (NEGATIVE)
[2018-08-21 02:42] LABS: BACTERIA NONE SEEN /hpf (NONE SEEN); EPITHELIAL CELLS 0-5 /hpf (0-5); RED CELLS - URINE NONE SEEN /hpf (0-5); WHITE CELLS - URINE 0-5 /hpf (0-5)
[2018-08-21 04:30] VITALS: BP 116/75
[2018-08-21 07:05] LABS: BASOPHILS 0.5 % (0-2); HEMATOCRIT 42.1 % (42.0-54.0); HEMOGLOBIN 14.6 g/dL (13.5-17.5); IMMATURE GRANULOCYTES 0.4 % (0-5); LYMPHOCYTES 45.1 % (15-50); MCH 31.1 pg (26.0-34.0); MCHC 34.7 g/dL (31.0-37.0); MCV 89.6 fL (80.0-100.0); MEAN PLATELET VOLUME 10.1 fL (7.4-10.4); MONOCYTES 7.8 % (2-11); NEUTROPHILS 43.2 % (40-80); PLATELET COUNT 303 10x3/uL (130-400); RDW 14.1 % (11.5-14.5); WBC 5.7 10x3/uL (4.8-10.8)
[2018-08-21 07:19] LABS: ALBUMIN 3.1 g/dL (3.4-5.0); ALKALINE PHOSPHATASE 64 U/L (46-116); ALT (SGPT) 90 U/L (10-68); BILIRUBIN - TOTAL 0.35 mg/dL (0.2-1.3); CALC OSMOLALITY 276 mosm/kg (275-300); CALCIUM 8.8 mg/dL (8.5-10.1); CARBON DIOXIDE 26.7 mmol/L (21.0-32.0); CHLORIDE - SERUM 104 mmol/L (98-107); CREATININE - SERUM 0.8 mg/dL (0.6-1.3); GLUCOSE 97 mg/dL (74-106); MAGNESIUM - SERUM 1.8 mg/dL (1.8-2.4); POTASSIUM - SERUM 3.9 mmol/L (3.5-5.1); PROTEIN - SERUM 7.4 g/dL (6.4-8.2); SODIUM 139 mmol/L (136-145); eGFR NON AFRICAN AMERICAN > 90 mL/min (90-120)
[2018-08-21 07:24] LABS: UREA NITROGEN 11 mg/dL (7-18)
[2018-08-21 08:41] VITALS: BP 123/71
[2018-08-21 12:42] VITALS: BP 109/83
--- NOTE | 2018-08-21 12:44 | NUR ---
DR. GARCIA EVALUATED AND STATES THAT HE NO LONGER NEEDS A SITTER AND IS NOT SUICIDAL. STATES PT JUST THOUGHT HE WAS BEING FUNNY. AUTO BODY REPAIRER FIBERGLASS AND CASEMANAGER NOTIFIED. ALYSSA HAQ PAGED. WILL CONT. PLAN OF CARE.
--- NOTE | 2018-08-21 16:49 | NUR ---
IV AND TELEMETRY DCD. REFUSED TO WAIT ON PAPER WORK.
--- NOTE | 2018-08-21 16:50 | MORECARE ---
CASE MANAGEMENT DISCHARGE SUMMARY PATIENT: SAILAJA ASHBY UNIT: [id number] ADM DATE: 08/20/18 AGE: 62 : 57 SEX: M ROOM/BED: D.2119 AUTHOR: TERA HOOPER PHYSICIAN: REFERRING PHYSICIAN: ASHLEIGH RADFORD MD DATE OF SERVICE: 08/21/18 Discharge Plan Patient Name: SAILAJA ASHBY Facility: [facility]:[place] : 1955 Planned Disposition: Home Anticipated Discharge Date: 08/21/18 Discharge Date: Expected LOS: 1 Initial Reviewer: [email or web address] Initial Review Date: 08/21/2018 Generated: 08/21/18 5:50 pm Patient Name: SAILAJA ASHBY Page [id number] at 1650 All edits/amendments must be made on the electronic document DICTATION DATE: 08/21/181648 NUTRITION TEACHER: CECILLE 08/21/181648 RPT#: [id number] DC DATE: STATUS: ADM IN [facility] [address] [place] [address] END OF REPORT
--- NOTE | 2018-08-22 13:25 | CN ---
PATIENT NAME:SAILAJA ASHBY MEDICAL RECORD: [id number] : 57 LOCATION:D. D.2119 ADMIT DATE: 08/20/18 ACCOUNT: [id number] CONSULTING PHYSICIAN: BREN GARCIA MD REFERRING PHYSICIAN: ASHLEIGH RADFORD MD DATE OF CONSULTATION: 08/21/2018 IDENTIFYING DATA: The patient is 62 years old and he is admitted to the hospital on a voluntary basis. CHIEF COMPLAINT: Leg and chest pain. HISTORY OF PRESENT ILLNESS: The patient is here and hospitalized secondary to unstable angina. While being assessed, he endorsed some suicidal statements and was placed 1:1 with a sitter. I have interviewed him and he tells me he is not suicidal. He tells me he has been in the remote past and it has been a long time since he had those thoughts. He tells me that he did not really understand the questions, but when through the context of our discussion, I think that may be true, but there also may have been some attention seeking motivation in what he was doing and he just did not realize it was taken so seriously by the hospital. At any rate, he denies neurovegetative depressive symptoms, has a completely euthymic mood. No evidence of perceptual changes. He clearly has a substance abuse problem and apparently he has used cocaine for a long time. He tells me he was unaware that cocaine can cause cardiac arrhythmias or coronary artery vasospasms. He says he is not going to use cocaine anymore. MENTAL STATUS EXAMINATION: The patient is awake, alert and oriented fully. His mood is euthymic. His affect appropriate. Thought processes are goal directed. Memory, concentration, and abstraction abilities are intact. He has no thoughts of harming others or psychotic symptoms. ASSESSMENT: 1. Cocaine use disorder. 2. Marijuana use disorder. 3. 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 PLAN: At this time, the patient does not need a sitter. He is not suicidal. He is not out of touch with reality. He does not want to have any kind of inpatient or residential substance abuse treatment. He says he will do this as an outpatient and when offered information about various outpatient programs including [facility], he says he would be interested in that, so if the family welfare social work professor or discharge case management social worker would provide that that would be helpful. Again, he does not need a sitter. He is not psychotic or acutely dangerous. He is clearly an abuser of substances, but does not want anything, but outpatient treatment. TRANSINT:[id number] Voice Confirmation ID: [id number] DOCUMENT ID: [id number] CONSULT REPORT [id number] SAILAJA ASHBY PETER MD at 1325 CC: [id number] DICTATION DATE: 08/21/18 1303 RN EMPLOYEE HEALTH: 08/21/18 1323 DIS IN 08/21/18 [place] [id number] [place] [id number]
--- NOTE | 2018-08-26 18:38 | HP ---
PATIENT: SAILAJA ASHBY MEDICAL RECORD: [id number] ACCOUNT: [id number] LOCATION:[address]19 : 57 ADMISSION DATE: 08/20/18 PCP: SHAVONNE TOVAR DO HISTORY AND PHYSICAL EXAMINATION DIAGNOSES: 1. Unstable angina class IV. 2. Coronary artery disease. 3. Previous multivessel percutaneous transluminal coronary angioplasty stent. 4. Chronic obstructive pulmonary disease. 5. Hyperlipidemia. 6. Peripheral vascular disease. 7. Gastroesophageal reflux disease. HISTORY OF PRESENT ILLNESS: Mr. Ashby presents with class IV unstable angina. He does have a history of coronary artery disease, previous cardiac stenting. He is on Imdur. He has had increasing chest pain despite the Imdur. His heart rates in the 60s. Systolic blood pressure is 102. Hence, there was no room for any further medical management. His troponin is normal. EKG is normal. PHYSICAL EXAMINATION: GENERAL APPEARANCE: Well-nourished, well-developed, appears stated age. Level of distress, comfortable. PSYCHIATRIC: Mental status, alert, normal affect. Orientation, oriented to time, place and person. EYES: Lids and conjunctiva, noninjected. No discharge, no pallor. ENT: Lips, teeth, gums, normal dentition. Oropharynx, no cyanosis, no pallor. NECK: Carotid arteries, bilateral normal upstroke, no bruits, no thrills. JUGULAR VEINS: No jugular venous pressure or distention. CERVICAL LYMPH NODES: Nontender, nonenlarged. THYROID: Not enlarged. Nontender. No nodules. LUNGS: Respiratory effort, unlabored. CHEST: Normal curvature. No thoracic deformity. No chest wall tenderness. Percussion, resonant. Auscultation, clear. No wheezes, no rales, no rhonchi. CARDIOVASCULAR: Precordial exam, nondisplaced. No heaves or pericardial thrills. Rate and rhythm, regular. Heart sounds, normal S1, normal S2. No S3, no gallop, no rub. Systolic murmur, not heard. Diastolic murmur, not heard. EXTREMITIES: No cyanosis, no edema. Peripheral pulses, full and equal in all extremities, except as noted. No bruits appreciated. ABDOMEN: Soft, nondistended. Normal aorta. No bruit. Nontender. No masses. Liver, nontender, no hepatomegaly. Spleen, nontender, no splenomegaly. MUSCULOSKELETAL: No joint tenderness. No joint swelling. No erythema. NEUROLOGICAL: Normal gait, normal strength, normal tone. SKIN: Warm and dry. OVERALL IMPRESSION: At this time, we will risk stratify with stress testing Cardiolite imaging due to the fact that his EKG and troponin are normal. Further care depends upon the findings of the stress test. TRANSINT:[id number] Voice Confirmation ID: [id number] DOCUMENT ID: [id number] HISTORY AND PHYSICAL [id number] SAILAJA ASHBY JEFFREY MD at 1838 CC: [id number] DICTATION DATE: 08/20/18 0738 RN PATIENT CARE: 08/20/18 0801 DIS IN 08/21/18 [place] [id number] [place] [address]
--- NOTE | 2018-08-26 18:38 | EC ---
PATIENT:SAILAJA ASHBY DATE OF SERVICE: 08/20/18 SEX: M MEDICAL RECORD: [id number] DATE OF : 57 LOCATION:D.M2 D.211 AGE OF PATIENT: 62 ADMISSION DATE: 08/20/18 REFERRING PHYSICIAN: INTERPRETING PHYSICIAN: JAIRO ARRIETA MD ECHOCARDIOGRAM REPORT ECHO CHARGES 4 ECHO COMPLETE Date: 08/20/18 CLINICAL DIAGNOSIS: CHEST PAIN HX CAD/COPD ECHOCARDIOGRAPHIC MEASUREMENTS (adult normal given) AC root (d.<3.7cm) 3.1 cm LV Septum d (<1.2 cm> 1.3 cm Valve Excursion 1.2 cm LV Septum (systole) 1.4 cm Left Atria (s.<4.0cm> 3.0 cm LVPW d(<1.2cm) 1.4 cm RV (d.<2.3cm) 3.6 cm LVPW (sytole) 1.5 cm LV diastole(<5.6CM) 4.8 cm MV E-F(>70mm/sec) cm LV systole 3.6 cm LVOT Diameter 1.9 cm MV exc.(>10mm) 2.4 cm Est.ejection fraction (50-75%) % DOPPLER: LVIT cm/sec A 71.0 cm/sec E 65.0 cm/sec LA cm/sec RVSP 34 mmHg LVOT 80 cm/sec AOP1/2T m/s Asc. Ao 107 cm/sec RVOT 62 cm/sec RA cm/sec PA 83 cm/sec AV Gradient Peak 4.56 mmHg AV Mean 2.47 mmHg AV Area 2.2 cm MV Gradient Peak 2.48 mmHg MV Mean 0.66 mmHg MV Area cm COMMENTS: Rn Clinical Quality: Naomi GLASER Surfacing Technician: 1 Dr. Arrieta TAPE# PACS Pericardial Effusion N DATE OF SERVICE: 08/20/2018 PROCEDURE: Echocardiogram. FINDINGS: 1. Left ventricular chamber size is within normal limits. Left ventricular systolic function is normal. Overall ejection fraction estimated at 50%. 2. Left atrium, right atrium and right ventricular chamber sizes are within normal limits. 3. Valvular structures have normal structure and motion. ECHOCARDIOGRAM REPORT [id number] SAILAJA ASHBY 4. Doppler interrogation reveals mild mitral regurgitation, mild tricuspid regurgitation, no other valvular insufficiency or stenosis. Pulmonary systolic pressure is estimated at 34 mmHg. 5. No evidence of pericardial effusion or left ventricular thrombus. TRANSINT:[id number] Voice Confirmation ID: [id number] DOCUMENT ID: [id number] JAIRO ARRIETA MD at 1838 CC: [id number] DICTATION DATE: 08/20/18 1602 MORNING NANNY: 08/20/18 1618 DIS IN 08/21/18 [place] [id number] [place] [id number]
--- NOTE | 2018-08-26 18:38 | ST ---
PATIENT:SAILAJA ASHBY MEDICAL RECORD: [id number] SEX: M LOCATION:D. D.211 ORDER #: ADMISSION DATE: 08/20/18 AGE OF PATIENT: 62 REFERRING PHYSICIAN: INTERPRETING PHYSICIAN: JAIRO OLIVA MD DATE OF SERVICE: 08/20/2018 Nuclear Stress Test INDICATION: Angina and coronary artery disease. PROCEDURE IN DETAIL: The patient was exercised on standard Lexiscan protocol with 33 mCi of sestamibi injected at peak stress, 12 mCi used previously for rest images. FINDINGS: Gated SPECT reveals preserved ejection fraction at 51% with good wall motion and thickening and brightening throughout all segments. SPECT imaging Cardiolite was used as myocardial fusion agent. There is homogeneous uptake throughout all segments at rest and stress with no evidence of inducible ischemia or previous infarction. OVERALL IMPRESSION: 1. This is a normal nuclear stress test with no evidence of inducible ischemia or previous infarction. 2. Gated SPECT reveals a preserved ejection fraction at 51%. In this patient with ongoing symptomatology, the current scan does not suggest the presence of hemodynamically significant coronary artery disease. Evaluate noncardiac etiology of chest pain. TRANSINT:[id number] Voice Confirmation ID: [id number] DOCUMENT ID: [id number] JAIRO OLIVA MD at 1838 CC: [id number] DICTATION DATE: 08/20/18 1618 WEEKDAY BABYSITTER: 08/21/18 0205 DIS IN 08/21/18 [facility] [address] [place] [address]
== END 2018-08-21 16:50 | disposition home or self-care (01) ==
LOC: D.ER 23:55 → D.M2 08-20 01:51 → OBSVTIME 08-20 01:51 → D.M2 08-21 16:50
PROVIDERS: Family Medicine; ADMIT Family Medicine Adult Medicine; ATTEND Family Medicine Adult Medicine
DX: I25.110 Atherosclerotic heart disease of native coronary artery with unstable angina pectoris (principal); E78.5 Hyperlipidemia, unspecified; K21.9 Gastro-esophageal reflux disease without esophagitis; J44.9 Chronic obstructive pulmonary disease, unspecified; I73.9 Peripheral vascular disease, unspecified; F14.90 Cocaine use, unspecified, uncomplicated; F12.90 Cannabis use, unspecified, uncomplicated; R45.851 Suicidal ideations; D64.9 Anemia, unspecified; E83.42 Hypomagnesemia; I10 Essential (primary) hypertension

== ENCOUNTER 2019-08-21 13:18 | Inpatient (IN) | payer MEDICARE ==
[~2019-08-21] VITALS: Ht 182.9 cm; Wt 55.0 kg
[~2019-08-21 13:18] MED LIST changes: +LIPITOR40 MG PO; +NEURONTIN800 MG PO
[2019-08-21 14:04] LABS: BASOPHILS 0.2 % (0-2); EOSINOPHILS 0 % (0-7); HEMATOCRIT 44.4 % (42.0-54.0); HEMOGLOBIN 15.2 g/dL (13.5-17.5); IMMATURE GRANULOCYTES 0.4 % (0-5); MCHC 34.2 g/dL (31.0-37.0); MCV 93.5 fL (80.0-100.0); MEAN PLATELET VOLUME 9.3 fL (7.4-10.4); MONOCYTES 7.5 % (2-11); NEUTROPHILS 75.9 % (40-80); PLATELET COUNT 313 10x3/uL (130-400); RBC 4.75 10x6/uL (4.20-6.10); RDW 14.1 % (11.5-14.5); WBC 12.3 10x3/uL (4.8-10.8)
[2019-08-21 14:12] LABS: CALC OSMOLALITY 278 mosm/kg (275-300); CALCIUM 8.6 mg/dL (8.5-10.1); CARBON DIOXIDE 25.1 mmol/L (21.0-32.0); CHLORIDE - SERUM 101 mmol/L (98-107); CREATININE - SERUM 0.8 mg/dL (0.6-1.3); GLUCOSE 102 mg/dL (74-106); SODIUM 141 mmol/L (136-145); UREA NITROGEN 7 mg/dL (7-18); eGFR NON AFRICAN AMERICAN > 90 mL/min (90-120)
[2019-08-21 14:17] LABS: ALBUMIN 3.8 g/dL (3.4-5.0); ALKALINE PHOSPHATASE 78 U/L (30-120); ALT (SGPT) 117 U/L (10-68); BILIRUBIN - TOTAL 0.27 mg/dL (0.2-1.3); PROTEIN - SERUM 8.6 g/dL (6.4-8.2)
--- NOTE | 2019-08-21 14:17 | NUR ---
URINE SAMPLE OBTAINED AND SENT TO LAB.
[2019-08-21 14:30] VITALS: BP 135/74
[2019-08-21 14:30] LABS: UDS - AMPHET NEGATIVE QUAL (NEGATIVE); UDS - BARB NEGATIVE QUAL (NEGATIVE); UDS - BENZO NEGATIVE QUAL (NEGATIVE); UDS - COCAINE NEGATIVE QUAL (NEGATIVE); UDS - OPIATE NEGATIVE QUAL (NEGATIVE); UDS - PCP NEGATIVE QUAL (NEGATIVE); UDS - THC POSITIVE QUAL (NEGATIVE)
[2019-08-21 14:32] LABS: APTT 26.2 SECONDS (22.8-39.4); INR 0.86 (0.85-1.17); PROTIME 11.7 SECONDS (11.6-15.0)
[2019-08-21 14:36] LABS: BILIRUBIN NEGATIVE (NEGATIVE); GLUCOSE NEGATIVE (NEGATIVE); KETONE NEGATIVE (NEGATIVE); NITRITE NEGATIVE (NEGATIVE); UROBILINOGEN NORMAL (NORMAL)
[2019-08-21 14:37] LABS: BACTERIA FEW /hpf (NEGATIVE); RED CELLS - URINE 0-5 /hpf (0-5); WHITE CELLS - URINE 0-5 /hpf (NEGATIVE)
[2019-08-21 14:41] LABS: AMYLASE - SERUM 79 U/L (25-115); CKMB 2.5 U/L (0.0-3.6); LIPASE 198 U/L (73-393); TROPONIN-I < 0.017 ng/mL (0.000-0.060)
[2019-08-21 14:49] LABS: CREATINE KINASE 2560 UL (21-232)
[2019-08-21 15:30] VITALS: BP 128/65
[2019-08-21 16:30] VITALS: BP 132/73
[2019-08-21 17:08] VITALS: BP 131/72
[2019-08-21 20:00] VITALS: BP 144/75
[2019-08-21 20:01] VITALS: BMI 16.4
[2019-08-21 21:43] LABS: CKMB 2.9 U/L (0.0-3.6); CREATINE KINASE 2279 UL (21-232); TROPONIN-I < 0.017 ng/mL (0.000-0.060)
[2019-08-22] VITALS: BP 148/68
[2019-08-22 01:24] LABS: CKMB 3.2 U/L (0.0-3.6); CREATINE KINASE 2087 UL (21-232); TROPONIN-I < 0.017 ng/mL (0.000-0.060)
[2019-08-22 04:00] VITALS: BP 155/77
[2019-08-22 06:27] LABS: BASOPHILS 0.3 % (0-2); EOSINOPHILS 0 % (0-7); HEMATOCRIT 41.6 % (42.0-54.0); HEMOGLOBIN 14.1 g/dL (13.5-17.5); IMMATURE GRANULOCYTES 0.3 % (0-5); LYMPHOCYTES 10.1 % (15-50); MCH 31.5 pg (26.0-34.0); MCHC 33.9 g/dL (31.0-37.0); MCV 93.1 fL (80.0-100.0); MEAN PLATELET VOLUME 9.6 fL (7.4-10.4); MONOCYTES 5.3 % (2-11); PLATELET COUNT 308 10x3/uL (130-400); RBC 4.47 10x6/uL (4.20-6.10); RDW 14.2 % (11.5-14.5); WBC 11.5 10x3/uL (4.8-10.8)
[2019-08-22 06:59] LABS: ALBUMIN 3.3 g/dL (3.4-5.0); ALKALINE PHOSPHATASE 69 U/L (30-120); ALT (SGPT) 94 U/L (10-68); BILIRUBIN - TOTAL 0.46 mg/dL (0.2-1.3); CALC OSMOLALITY 275 mosm/kg (275-300); CALCIUM 8.7 mg/dL (8.5-10.1); CARBON DIOXIDE 28.5 mmol/L (21.0-32.0); CHLORIDE - SERUM 102 mmol/L (98-107); CKMB 2.5 U/L (0.0-3.6); CREATININE - SERUM 0.6 mg/dL (0.6-1.3); GLUCOSE 98 mg/dL (74-106); MAGNESIUM - SERUM 1.9 mg/dL (1.8-2.4); POTASSIUM - SERUM 3.6 mmol/L (3.5-5.1); PROTEIN - SERUM 7.9 g/dL (6.4-8.2); SODIUM 139 mmol/L (136-145); TROPONIN-I < 0.017 ng/mL (0.000-0.060); UREA NITROGEN 8 mg/dL (7-18); eGFR NON AFRICAN AMERICAN > 90 mL/min (90-120)
[2019-08-22 07:01] LABS: CREATINE KINASE 1866 UL (21-232)
[2019-08-22 09:51] VITALS: BP 152/87
[2019-08-22 12:25] LABS: CKMB 2.3 U/L (0.0-3.6); TROPONIN-I 0.028 ng/mL (0.000-0.060)
[2019-08-22 12:26] LABS: CREATINE KINASE 1412 UL (21-232)
[2019-08-22 14:57] VITALS: BP 159/79
[2019-08-22 17:40] VITALS: BP 125/86
--- NOTE | 2019-08-22 17:57 | NUR ---
I have reviewed this patient and I concur with the Shift Assessment completed by the Licensed Practical Nurse today this shift.
[2019-08-22 19:11] VITALS: Ht 182.9 cm; Wt 55.0 kg
[2019-08-22 20:00] VITALS: BP 153/94
[2019-08-23 07:28] LABS: HEMATOCRIT 48.2 % (42.0-54.0); HEMOGLOBIN 16.2 g/dL (13.5-17.5); MCH 31.6 pg (26.0-34.0); MCHC 33.6 g/dL (31.0-37.0); MCV 94.1 fL (80.0-100.0); MEAN PLATELET VOLUME 9.4 fL (7.4-10.4); NEUTROPHILS 75.2 % (40-80); PLATELET COUNT 307 10x3/uL (130-400); RBC 5.12 10x6/uL (4.20-6.10); RDW 14.3 % (11.5-14.5)
[2019-08-23 07:30] LABS: WBC 8.6 10x3/uL (4.8-10.8)
[2019-08-23 07:34] LABS: ALBUMIN 3.2 g/dL (3.4-5.0); ALKALINE PHOSPHATASE 73 U/L (30-120); ALT (SGPT) 89 U/L (10-68); CALC OSMOLALITY 267 mosm/kg (275-300); CALCIUM 8.7 mg/dL (8.5-10.1); CARBON DIOXIDE 28.6 mmol/L (21.0-32.0); CHLORIDE - SERUM 99 mmol/L (98-107); CREATININE - SERUM 0.7 mg/dL (0.6-1.3); GLUCOSE 79 mg/dL (74-106); MAGNESIUM - SERUM 2.1 mg/dL (1.8-2.4); POTASSIUM - SERUM 3.7 mmol/L (3.5-5.1); PROTEIN - SERUM 8.2 g/dL (6.4-8.2); SODIUM 135 mmol/L (136-145); UREA NITROGEN 10 mg/dL (7-18); eGFR NON AFRICAN AMERICAN > 90 mL/min (90-120)
--- NOTE | 2019-08-23 08:22 | NUR ---
HE IS ALERT TALKING. C/O PAIN, PRN GIVEN. THE CALL LIGHT IS WITHIN REACH.
[2019-08-23 08:51] VITALS: BP 160/87
[2019-08-23 14:02] VITALS: BP 141/76
--- NOTE | 2019-08-23 15:55 | NUR ---
HE IS BEING LOUD, YELLING AT THE TV, WATCHING A FOOTBALL GAME. THEN HE THOUGHT SOMEONE STOLD HIS WALLET, THEN FOUND IT. HIS CALLED TO SAY SHE WANTED HIM KEPT HERE, THAT HE IS MEAN TO HER AT HOME. SHE LIVES BEFIND HIS HOUSE. AND HE LIVES WITH HIS BROTHER. THE BROTHER ALSO CALLED AT THE SAME TIME I WAS IN THE ROOM AFTER THE PATIENT REMOVE HIS OWN IV. I ASKED HIM WHY HE WANTED TO GO HOME AND HE STATES "THEY ARE NOT CUTTING ON ME". I ATTEMPTED TO GET HIM TO TALK TO ME ABOUT WHAT HE WAS TALKING ABOUT AND HE JUST REPEATED THE SAME THING.
--- NOTE | 2019-08-23 16:25 | NUR ---
I CALLED OUR CHARGE NURSE JEREMIAH TO CALL THE DOCTOR HE HAD TAKEN HIS IV OUT AND WAS GOING TO LEAVE. I TRIED TO TALK TO HIM AND ASK WHY AND HE JUST SAID "I WANT TO GO HOME". HIS CALLED A FEW MINUTES BEFORE AND SAID HE WAS LEAVING AT 1600. I ALSO RECEIVED A CALL FROM HIS BROTHER THAT HE LIVES WITH SAYING HE WAS GOING TO TAKE OUT HIS IV AND LEAVE. JEREMIAH CALLED THE DOCTOR AND THE PATIENT SIGNED THE AMA PAPERS. SINCE HE IS A LEFT AKA, JEREMIAH TOOK HIM DOWN TO THE FRONT VIA A WHEELCHAIR.
[2019-08-23 17:09] VITALS: BP 195/94
== END 2019-08-23 18:32 | disposition left against medical advice (07) | DRG 558 ==
LOC: D.ER 13:18 → D.MS 15:48
PROVIDERS: Family Medicine; ADMIT Family Medicine; ATTEND Family Medicine
DX: M62.82 Rhabdomyolysis (principal); F17.203 Nicotine dependence unspecified, with withdrawal; R45.851 Suicidal ideations; F12.90 Cannabis use, unspecified, uncomplicated; I73.9 Peripheral vascular disease, unspecified; I25.10 Atherosclerotic heart disease of native coronary artery without angina pectoris; J44.9 Chronic obstructive pulmonary disease, unspecified; I10 Essential (primary) hypertension; F32.9 Major depressive disorder, single episode, unspecified; F14.10 Cocaine abuse, uncomplicated; D64.9 Anemia, unspecified; E83.42 Hypomagnesemia; F10.10 Alcohol abuse, uncomplicated; Z89.611 Acquired absence of right leg above knee; D75.89 Other specified diseases of blood and blood-forming organs

== ENCOUNTER → 2019-09-26 12:28 | Outpatient (CLI) | payer MEDICARE ==
[2019-08-22 19:11] VITALS: BMI 16.4
== END | disposition home or self-care (01) ==
LOC: D.LAB 12:28
PROVIDERS: ATTEND Internal Medicine Gastroenterology
DX: B19.20 Unspecified viral hepatitis C without hepatic coma (principal)

== ENCOUNTER 2019-10-21 20:20 | Emergency (ER) | payer MEDICARE ==
[~2019-10-21] VITALS: Ht 182.9 cm; Wt 513.6 kg
[2019-10-21 20:24] VITALS: Ht 182.9 cm; Wt 513.6 kg
[2019-10-21 21:21] LABS: BASOPHILS 0.9 % (0-2); EOSINOPHILS 0.9 % (0-7); HEMATOCRIT 41.9 % (42.0-54.0); HEMOGLOBIN 14.1 g/dL (13.5-17.5); IMMATURE GRANULOCYTES 0.2 % (0-5); LYMPHOCYTES 47.6 % (15-50); MCH 31.8 pg (26.0-34.0); MCHC 33.7 g/dL (31.0-37.0); MCV 94.6 fL (80.0-100.0); MEAN PLATELET VOLUME 9.3 fL (7.4-10.4); MONOCYTES 12.1 % (2-11); NEUTROPHILS 38.3 % (40-80); PLATELET COUNT 345 10x3/uL (130-400); RBC 4.43 10x6/uL (4.20-6.10); RDW 13.9 % (11.5-14.5); WBC 4.4 10x3/uL (4.8-10.8)
[2019-10-21 22:19] LABS: CALC OSMOLALITY 284 mosm/kg (275-300); CALCIUM 8.3 mg/dL (8.5-10.1); CARBON DIOXIDE 20.9 mmol/L (21.0-32.0); CHLORIDE - SERUM 110 mmol/L (98-107); CREATININE - SERUM 0.8 mg/dL (0.6-1.3); GLUCOSE 87 mg/dL (74-106); POTASSIUM - SERUM 4.2 mmol/L (3.5-5.1); SODIUM 145 mmol/L (136-145); UREA NITROGEN 4 mg/dL (7-18); eGFR NON AFRICAN AMERICAN > 90 mL/min (90-120)
[2019-10-21 22:31] LABS: ALBUMIN 3.4 g/dL (3.4-5.0); ALKALINE PHOSPHATASE 62 U/L (30-120); ALT (SGPT) 75 U/L (10-68); CREATINE KINASE 67 UL (21-232); LIPASE 190 U/L (73-393); PRO BNP 24 pg/mL (0-125); PROTEIN - SERUM 7.5 g/dL (6.4-8.2)
[2019-10-21 22:34] LABS: BILIRUBIN - TOTAL 0.08 mg/dL (0.2-1.3); TROPONIN-I < 0.017 ng/mL (0.000-0.060)
[2019-10-22 02:33] LABS: UDS - AMPHET NEGATIVE QUAL (NEGATIVE); UDS - BARB NEGATIVE QUAL (NEGATIVE); UDS - BENZO NEGATIVE QUAL (NEGATIVE); UDS - COCAINE POSITIVE QUAL (NEGATIVE); UDS - OPIATE NEGATIVE QUAL (NEGATIVE); UDS - PCP NEGATIVE QUAL (NEGATIVE); UDS - THC NEGATIVE QUAL (NEGATIVE)
[2019-10-22 02:35] LABS: BILIRUBIN NEGATIVE (NEGATIVE); KETONE NEGATIVE (NEGATIVE); NITRITE NEGATIVE (NEGATIVE); UROBILINOGEN NORMAL (NORMAL)
[2019-10-22 05:49] VITALS: BP 106/62
== END 2019-10-22 06:40 | disposition home or self-care (01) ==
LOC: D.ER 20:20
PROVIDERS: Family Medicine
DX: I25.10 Atherosclerotic heart disease of native coronary artery without angina pectoris (principal); F14.10 Cocaine abuse, uncomplicated; J44.9 Chronic obstructive pulmonary disease, unspecified; R79.89 Other specified abnormal findings of blood chemistry; G62.9 Polyneuropathy, unspecified; I10 Essential (primary) hypertension; I25.2 Old myocardial infarction; R07.9 Chest pain, unspecified; F10.129 Alcohol abuse with intoxication, unspecified; Y90.8 Blood alcohol level of 240 mg/100 ml or more

== ENCOUNTER → 2020-07-13 10:10 | Outpatient (CLI) | payer MEDICARE ==
[2020-03-18 17:37] VITALS: BMI 20.4
[~2020-07-13 10:10] MED LIST changes: +NORVASC5 MG PO; +ULTRAM50 MG PO
== END | disposition home or self-care (01) ==
LOC: D.CT 10:10
PROVIDERS: ATTEND Thoracic Surgery (Cardiothoracic Vascular Surgery)
DX: I70.291 Other atherosclerosis of native arteries of extremities, right leg (principal)